=== PATIENT | male | born 1990 | race Hispanic/Latino ===

== ENCOUNTER 2017-06-20 18:49 | Emergency (ER) | payer BC ==
[2017-06-20] MEDS ORDERED: Adacel (T-DAP) 0.5 ML VIAL ONE (19:07)
== END 2017-06-20 19:45 | disposition home or self-care (01) ==
LOC: NAV ERS 18:49
DX: S60.112A Contusion of left thumb with damage to nail, initial encounter (principal); F17.210 Nicotine dependence, cigarettes, uncomplicated; W24.0XXA Contact with lifting devices, not elsewhere classified, initial encounter; Y93.B1 Activity, exercise machines primarily for muscle strengthening; Y92.39 Other specified sports and athletic area as the place of occurrence of the external cause
CPT/HCPCS: 11740; 90471; 90715